=== PATIENT | female | born 1990 | race Two or more races ===

== ENCOUNTER → 2025-07-31 | Outpatient (CLI) | payer OTHER | LOC: M WHC 09:51 | PROVIDERS: ATTEND Physician Assistant | DX: N64.4 Mastodynia (principal) | CPT/HCPCS: 76641; 77066; G0279 ==

== ENCOUNTER 2025-09-03 13:19 | Emergency (ER) | payer OTHER ==
[~2025-09-03] VITALS: Ht 170.2 cm; Wt 83.1 kg
[2025-09-03] MEDS ORDERED: LOSA50TA28 (13:39)
[2025-09-03] MEDS ORDERED: GABA-1635 (13:39)
[2025-09-03] MEDS: KETOROLAC 60 MG/2 ML VIAL IM ONE (15:16)
[2025-09-03] MEDS ORDERED: KETO-204 PO (16:39)
[2025-09-03] MEDS ORDERED: METH-1165 PO (16:39)
[2025-09-03 16:42] VITALS: BP 150/86; TEMP 97.9; O2SAT 98
== END 2025-09-03 16:46 | disposition home or self-care (01) ==
LOC: M ED 13:19
DX: S39.012A Strain of muscle, fascia and tendon of lower back, initial encounter (principal); M54.32 Sciatica, left side; Y92.9 Unspecified place or not applicable; Y93.9 Activity, unspecified; Y99.9 Unspecified external cause status; Z79.2 Long term (current) use of antibiotics; Z79.899 Other long term (current) drug therapy
CPT/HCPCS: 96372; 99283; J1885